=== PATIENT | male | born 1970 | race African-American/Black ===

== ENCOUNTER 2016-07-19 12:19 | Emergency (ER) | payer MEDICAID ==
[~2016-07-19] VITALS: Ht 170.2 cm; Wt 97.5 kg
[~2016-07-19 12:19] MED LIST: AFRIN NASAL SPR30 ML NASAL; AUGMENTIN 875-1 EAC1 ORAL; NKM; PERCOCET 5-3251 EACH ORAL
[2016-07-19] MEDS ORDERED: BENADRYL25 MG ORAL (13:29)
[2016-07-19] MEDS ORDERED: KENALOG 0.5% CR15 GM TP (13:29)
[2016-07-19 13:49] VITALS: BP 143/92
--- NOTE | 2016-07-19 17:32 | Emergency Room Report ---
History of Present Illness General Chief Complaint: Skin Rash/Abscess Source: Patient Present Illness HPI The patient is a 46 yo M presenting for total body rash which began yesterday for an unknown reason. The patient denies any known allergies. Patient denies using any new products or new clothing. Patient denies consuming any different foods. The patient describes this as little red bumps all over but are very itchy. Patient denies any pain. The patient denies of symptoms including nausea, vomiting, fever, chills, headache, dizziness, chest pain, shortness of breath Allergies: Coded Allergies: IBUPROFEN (Unverified Allergy, Unknown, 10/17/13) Patient History Past Medical History: see triage record Pertinent Family History: none Reviewed Nursing Documentation: PMH: Agreed, PSxH: Agreed Nursing Documentation-PMH Past Medical History: No History, Except For Hx Hypertension: Yes Hx Neurological Problems: Yes - Pinched nerve on neck Review of Systems All Other Systems: negative except mentioned in HPI Physical Exam Vital Signs Date Time Temp Pulse Resp B/P Pulse Ox O2 Delivery O2 Flow Rate FiO2 07/19/16 13:00 99.1 74 16 143/92 95 Room Air Sp02 EP Interpretation: reviewed, normal General Appearance: no apparent distress, alert, GCS 15, non-toxic Head: normocephalic, atraumatic Eyes: bilateral eye PERRL, bilateral eye normal inspection ENT: hearing grossly normal, normal pharynx, no angioedema, normal voice Respiratory: chest non-tender, lungs clear, normal breath sounds, speaking full sentences Cardiovascular #1: regular rate, rhythm, no edema Musculoskeletal: back normal, gait/station normal, normal range of motion, non- tender Neurologic: alert, oriented x3, responsive, motor strength/tone normal, sensory intact, speech normal Psychiatric: judgement/insight normal, memory normal, mood/affect normal, no suicidal/homicidal ideation Skin: normal turgor, rash - Many erythematous papules noted over neck, bilateral arms, and bilateral legs Lymphatic: no adenopathy Medical Decision Making PA Attestation Dr. Walter is my supervising physician. Patient management was discussed with my supervising physician Diagnostic Impression: Primary Impression: Dermatitis ER Course The patient is a 46 yo M presenting for total body rash Ddx considered include but not limited to insect bite, contact dermatitis, eczema, cellulitis PE: vitals WNL. NAD Many erythematous papules noted over neck, bilateral arms, and bilateral legs. No scaling. No burrows. No central openings. The patient is discharged home with a prescription for Benadryl and triamcinolone. Patient will follow up with PMD. Patient will thoroughly clean his room. ER precautions are given Last Vital Signs Date Time Temp Pulse Resp B/P Pulse Ox O2 Delivery O2 Flow Rate FiO2 07/19/16 13:49 99.1 74 16 143/92 95 Room Air Status: improved Disposition: HOME, SELF-CARE Condition: Improved Scripts Triamcinolone Acet (Triamcinolone Acetonide) 15 Gm Cream..g. 15 GM TP TID, #15 GM Prov: DONNA BUSCH 07/19/16 Diphenhydramine Hcl* (BENADRYL*) 25 Mg Capsule 25 MG ORAL Q6H Y for Itching, #20 CAP Prov: DONNA BUSCH 07/19/16 Patient Instructions: Rash Additional Instructions: I discussed my findings with the patient. All questions and concerns have been answered. Treatment and medication compliance have been addressed. I advised the patient that they need to follow up with PMD in 3-5 days. Return to ED if symptoms worsen, new symptoms arise, or if needed for any reason. Patient verbalized understanding of discharge instructions. DONNA BUSCH Jul 19, 2016 17:32
== END 2016-07-19 13:49 | disposition home or self-care (01) ==
LOC: EMR 13:15
DX: L30.9 Dermatitis, unspecified (principal); I10 Essential (primary) hypertension; Z88.6 Allergy status to analgesic agent
CPT/HCPCS: 99284

== ENCOUNTER 2016-09-06 14:04 | Emergency (ER) | payer MEDICAID ==
[~2016-09-06] VITALS: Ht 170.2 cm; Wt 103.9 kg
[~2016-09-06 14:04] MED LIST changes: +BENADRYL25 MG ORAL; +KENALOG 0.5% CR15 GM TP
[2016-09-06] MEDS ORDERED: Norco 5mg/325mg tab ORAL ONE ×2 (14:30→15:00)
[2016-09-06] MEDS ORDERED: Enalaprilat 2.5mg/2ml Inj IV ONE (14:30)
--- NOTE | 2016-09-06 15:11 | Emergency Room Report ---
History of Present Illness General Chief Complaint: Chest Pain Source: Patient Present Illness HPI Patient is a 46-year-old male who presented after increased chest pain. Pain is described as a tightness sensation. This began at rest. Patient had recently had a neck surgery for discectomy. Patient denied any fever. He had not been vomiting. He denies any severe pain. Denies weakness to his extremities. Allergies: Coded Allergies: IBUPROFEN (Unverified Allergy, Unknown, 10/17/13) Patient History Past Medical History: see triage record, HTN Reviewed Nursing Documentation: PMH: Agreed, PSxH: Agreed Nursing Documentation-PMH Hx Hypertension: Yes Hx Neurological Problems: Yes - Pinched nerve on, neck neck surgery august 2016 Review of Systems All Other Systems: negative except mentioned in HPI Physical Exam Vital Signs Date Time Temp Pulse Resp B/P Pulse Ox O2 Delivery O2 Flow Rate FiO2 09/06/16 14:15 99.1 93 20 82/39 97 Room Air Sp02 EP Interpretation: reviewed, normal General Appearance: normal inspection, well appearing, no apparent distress, alert, GCS 15 Head: atraumatic ENT: normal ENT inspection, hearing grossly normal, normal voice Neck: normal inspection, supple, no bony tend, other - cervical hard collar in place Respiratory: normal inspection, lungs clear, normal breath sounds, no respiratory distress, no retraction, no wheezing Cardiovascular #1: regular rate, rhythm, no edema Gastrointestinal: normal inspection, normal bowel sounds, non tender, soft, no guarding, no hernia Genitourinary: no CVA tenderness Musculoskeletal: normal inspection, back normal, normal range of motion Neurologic: normal inspection, alert, oriented x3, responsive, assembler lay ups III-XII nml as tested, motor strength/tone normal, normal gait, speech normal Psychiatric: normal inspection, judgement/insight normal, mood/affect normal Skin: normal inspection, normal color, no rash Medical Decision Making Diagnostic Impression: Primary Impression: Hypertension ER Course Patient presented for chest pain.Differential diagnosis included but was not limited to acute coronary syndrome, pulmonary embolism, pneumonia, aortic dissection, shingles, pneumothorax, aortic dissection, esophageal rupture, pericarditis. Because of complexity of patient's case laboratory testing and imaging studies were ordered. EKG interpreted by me showed normal sinus rhythm with a rate of [address] or T wave changes.The patient was noted to have improvement in his chest pain after being given [place] as well as blood pressure medications. Patient was advised to recheck with Dr. Gloria tomorrow. Patient is advised to return if any worsening condition or if any changes in status that are concerning. Labs Test 09/06/16 15:00 09/06/16 15:45 White Blood Count 7.0 K/UL (4.8-10.8) Red Blood Count 6.38 M/UL (4.70-6.10) Hemoglobin 18.0 G/DL (14.2-18.0) Hematocrit 56.8 % (42.0-52.0) Mean Corpuscular Volume 89 FL (80-99) Mean Corpuscular Hemoglobin 28.2 PG (27.0-31.0) Mean Corpuscular Hemoglobin Concent 31.7 G/DL (32.0-36.0) Red Cell Distribution Width 13.3 % (11.6-14.8) Platelet Count 227 K/UL (150-450) Mean Platelet Volume 7.4 FL (6.5-10.1) Neutrophils (%) (Auto) 57.1 % (45.0-75.0) Lymphocytes (%) (Auto) 34.2 % (20.0-45.0) Monocytes (%) (Auto) 7.1 % (1.0-10.0) Eosinophils (%) (Auto) 0.9 % (0.0-3.0) Basophils (%) (Auto) 0.8 % (0.0-2.0) Prothrombin Time 10.2 SEC (9.30-11.50) Prothromb Time International Ratio 1.0 (0.9-1.1) Activated Partial Thromboplast Time 30 SEC (23-33) Sodium Level 138 mEQ/L (135-145) Potassium Level 3.7 mEQ/L (3.4-4.9) Chloride Level 94 mEQ/L (98-107) Carbon Dioxide Level 29 mEQ/L (20-30) Anion Gap 15 (5-15) Blood Urea Nitrogen 14 mg/dL (7-23) Creatinine 1.2 mg/dL (0.7-1.2) Estimat Glomerular Filtration Rate > 60 mL/min (>60) Glucose Level 106 mg/dL (74-106) Calcium Level 10.1 mg/dL (8.6-10.2) Total Bilirubin 0.5 mg/dL (0.0-1.2) Aspartate Amino Transf (AST/SGOT) 20 U/L (5-40) Alanine Aminotransferase (ALT/SGPT) 19 U/L (3-41) Alkaline Phosphatase 76 U/L (40-129) Total Creatine Kinase 232 U/L (38-174) Creatine Kinase MB 1.6 ng/mL (< 6.7) Creatine Kinase MB Relative Index 0.6 Troponin I < 0.30 ng/mL (<=0.30) Total Protein 7.1 g/dL (6.6-8.7) Albumin 4.5 g/dL (3.5-5.2) Globulin 2.6 g/dL Albumin/Globulin Ratio 1.7 (1.0-2.7) Urine Color Pale yellow Urine Appearance Slightly cloudy Urine pH 6 (4.5-8.0) Urine Specific [place] 1.020 (1.005-1.035) Urine Protein Negative (NEGATIVE) Urine Glucose (UA) Negative (NEGATIVE) Urine Ketones Negative (NEGATIVE) Urine Occult Blood 1+ (NEGATIVE) Urine Nitrite Negative (NEGATIVE) Urine Bilirubin Negative (NEGATIVE) Urine Urobilinogen Normal MG/DL (0.0-1.0) Urine Leukocyte Esterase Negative (NEGATIVE) Urine RBC 2-4 /HPF (0 - 0) Urine WBC 0 /HPF (0 - 0) Urine Squamous Epithelial Cells Occasional /LPF Urine Bacteria Few /HPF (NONE) EKG Diagnostic Results Rate: normal Rhythm: NSR ST Segments: no acute changes Rhythm Strip Diag. Results EP Interpretation: yes Rhythm: NSR, no PVC's, no ectopy Last Vital Signs Date Time Temp Pulse Resp B/P Pulse Ox O2 Delivery O2 Flow Rate FiO2 09/06/16 15:09 154/105 09/06/16 14:15 99.1 93 20 97 Room Air Status: improved Disposition: HOME, SELF-CARE Condition: Stable Referrals: TABBY GLORIA (PCP) Bipin Wilkins September 06, 2016 15:11
--- NOTE | 2016-09-06 15:18 | Diagnostic Imaging Report ---
Indication: Chest Pain Comparison: 01/13/16 A single view chest radiograph was obtained. Findings: Cardiomediastinal appearance is within normal limits for age. Aorta is ectatic consistent with atherosclerotic disease. Pulmonary vascularity is appropriate. The diaphragmatic contour is smooth and costophrenic angles are sharp. No pleural effusions are identified. The bones are unremarkable. Impression: No acute findings. Atherosclerotic disease of aorta
[2016-09-06 15:19] VITALS: BP 175/125
[2016-09-06 15:39] LABS: PROTHROMBIN TIME 10.2 SEC (9.30-11.50)
[2016-09-06 15:44] LABS: BASOPHILS % (AUTO) 0.8 % (0.0-2.0); EOSINOPHILS % (AUTO) 0.9 % (0.0-3.0); LYMPHOCYTES % (AUTO) 34.2 % (20.0-45.0); MEAN CORPUSCULAR HEMOGLOBIN 28.2 PG (27.0-31.0); MEAN CORPUSCULAR HGB CONC 31.7 G/DL (32.0-36.0); MEAN CORPUSCULAR VOLUME 89 FL (80-99); MEAN PLATELET VOLUME 7.4 FL (6.5-10.1); MONOCYTES % (AUTO) 7.1 % (1.0-10.0); NEUTROPHILS % (AUTO) 57.1 % (45.0-75.0); PLATELET COUNT 227 K/UL (150-450); RED BLOOD COUNT 6.38 M/UL (4.70-6.10); RED CELL DISTRIBUTION WIDTH 13.3 % (11.6-14.8)
[2016-09-06 15:46] LABS: TROPONIN I < 0.30 ng/mL (<=0.30)
[2016-09-06 15:47] LABS: ALANINE AMINOTRANSFERASE 19 U/L (3-41); ALBUMIN/GLOBULIN RATIO 1.7 (1.0-2.7); ANION GAP 15 (5-15); ASPARTATE AMINO TRANSFERASE 20 U/L (5-40); CALCIUM 10.1 mg/dL (8.6-10.2); CARBON DIOXIDE 29 mEQ/L (20-30); CHLORIDE 94 mEQ/L (98-107); CREATININE 1.2 mg/dL (0.7-1.2); GLOMERULAR FILTRATION RATE > 60 mL/min (>60); HEMOLYSIS 5; POTASSIUM 3.7 mEQ/L (3.4-4.9); SODIUM 138 mEQ/L (135-145); TOTAL PROTEIN 7.1 g/dL (6.6-8.7)
[2016-09-06 15:58] LABS: CKMB 1.6 ng/mL (< 6.7)
[2016-09-06 16:39] LABS: KETONES,URINE NEGATIVE (NEGATIVE); LEUKOCYTE ESTERASE ,URINE NEGATIVE (NEGATIVE); NITRITE,URINE NEGATIVE (NEGATIVE); PH,URINE 6 (4.5-8.0); PROTEIN,URINE NEGATIVE (NEGATIVE); UROBILINOGEN,URINE NORMAL MG/DL (0.0-1.0)
[2016-09-06 16:59] LABS: APPEARANCE,URINE SLIGHTLY CLOUDY
[2016-09-06 17:02] LABS: BACTERIA,URINE FEW /HPF; SQUAMOUS EPITHELIAL CELL,UR OCCASIONAL /LPF (NONE/OCC); WBC,URINE 0 /HPF (0 - 0)
[2016-09-06 17:20] VITALS: BP 165/111
--- NOTE | 2016-09-07 12:46 | Cardiology Report ---
APPROVED REPORT EKG Measurement Heart [id number] Normal sinus rhythm Possible Left atrial enlargement Cannot rule out Anterior infarct, age undetermined Abnormal ECG
== END 2016-09-06 17:25 | disposition home or self-care (01) ==
LOC: EMR 14:37
DX: I10 Essential (primary) hypertension (principal); R07.89 Other chest pain; Z98.890 Other specified postprocedural states
CPT/HCPCS: 71010; 80053; 81003; 82550; 82553; 84484; 85025; 85610; 85730; 93005; 96374

== ENCOUNTER 2017-06-17 13:24 | Emergency (ER) | payer MEDICAID ==
[~2017-06-17] VITALS: Ht 170.2 cm; Wt 102.1 kg
[2017-06-17] MEDS ORDERED: AMLODIPINE BES2.5 MG ORAL (13:55)
[2017-06-17] MEDS ORDERED: HYDROCHLOROTH12.5 M2 ORAL (13:55)
[2017-06-17] MEDS ORDERED: LISINOPRIL20 MG ORAL (13:55)
[2017-06-17] MEDS ORDERED: IBUPROFEN600 MG ORAL (13:55)
[2017-06-17] MEDS ORDERED: HYDROCODON-ACE1 EA15 ORAL (13:55)
[2017-06-17] MEDS ORDERED: PANTOPRAZOLE SO40 MG ORAL (13:55)
[2017-06-17] MEDS ORDERED: GABAPENTIN800 MG ORAL (13:55)
[2017-06-17] MEDS ORDERED: AMOXICILLIN500 MG ORAL (13:55)
[2017-06-17] MEDS ORDERED: Morphine Sulfate 4mg/ml Inj IM ONE (14:15)
[2017-06-17] MEDS ORDERED: Augmentin 875mg Tab ORAL ONE (14:15)
[2017-06-17] MEDS ORDERED: PREDNISONE20 MG ORAL (14:19)
[2017-06-17] MEDS ORDERED: AUGMENTIN 875-1 EAC1 ORAL (14:19)
[2017-06-17 14:40] VITALS: BP 152/96
[2017-06-17 14:41] VITALS: BP 152/96
--- NOTE | 2017-06-17 16:17 | Emergency Room Report ---
History of Present Illness General Chief Complaint: Toothache Source: Patient Present Illness HPI 47-year-old male presents ED for evaluation. Patient presenting with left sided cheek pain. Seen by dentist a few days ago and was prescribed antibiotics. Patient states pain is persisting. Throbbing, 10 out of 10, nonradiating. Denies fevers or chills. Patient also states he has a sinus infection. States he feels very congested and has great deal of pressure around the nose. Has been told he has sinus infection in the past. No other aggravating or relieving factors. Denies any other associated symptoms Allergies: Coded Allergies: IBUPROFEN (Unverified Allergy, Unknown, 10/17/13) Patient History Past Medical History: HTN, other Past Surgical History: other - neck, back surgery Pertinent Family History: none Social History: Denies: smoking, alcohol use, drug use Immunizations: UTD Reviewed Nursing Documentation: PMH: Agreed, PSxH: Agreed Nursing Documentation-PMH Hx Hypertension: Yes Hx Neurological Problems: Yes - Pinched nerve on, neck neck surgery august 2016 Review of Systems All Other Systems: negative except mentioned in HPI Physical Exam Vital Signs Date Time Temp Pulse Resp B/P (MAP) Pulse Ox O2 Delivery O2 Flow Rate FiO2 06/17/17 13:42 98.3 101 20 172/92 95 Room Air 98.2 Sp02 EP Interpretation: reviewed, normal General Appearance: no apparent distress, alert, GCS 15, non-toxic Head: normocephalic Eyes: bilateral eye normal inspection, bilateral eye PERRL ENT: hearing grossly normal, normal pharynx, no angioedema, normal voice, TMs + canals normal, other - swelling L lower jaw. no fluctuance Neck: normal inspection Respiratory: normal inspection Cardiovascular #1: normal inspection Gastrointestinal: normal inspection Rectal: deferred Genitourinary: no CVA tenderness Musculoskeletal: normal inspection Neurologic: alert, oriented x3, responsive, motor strength/tone normal, sensory intact, speech normal Psychiatric: judgement/insight normal, memory normal, mood/affect normal, no suicidal/homicidal ideation Skin: normal inspection Lymphatic: normal inspection Medical Decision Making Diagnostic Impression: Primary Impression: Sinus infection Qualified Codes: J01.01 - Acute recurrent maxillary sinusitis Additional Impression: Tooth infection ER Course 47-year-old male presents ED complaining of tooth pain. sinus pressure Cracked tooth, dental abscess, cavity Patient placed on stretcher. After initial history, physical exam reveals a male in mild distress. There is swelling to the left lower jaw close to the site of the tooth infection. No fluctuance. No discharge. No neck stiffness. Patient does have narrow nasal turbinates consistent with a sinus infection Discussed findings with patient. We will change prescription from amoxicillin to Augmentin. Given prednisone and morphine IM here Diagnosis- tooth infection, sinus infection Stable and discharged to home prescription for Augmentin, prednisone. Instructed to see dentist as a walk-in this week. Return to ED if symptoms recur or worse Last Vital Signs Date Time Temp Pulse Resp B/P (MAP) Pulse Ox O2 Delivery O2 Flow Rate FiO2 06/17/17 14:41 98.5 99 19 152/96 96 Room Air Status: improved Disposition: HOME, SELF-CARE Condition: Stable Scripts Prednisone* (PREDNISONE*) 20 Mg Tablet 40 MG ORAL DAILY, #10 TAB Prov: EMILY POTTS M.D. 06/17/17 Amoxicillin/Potassium Clav 875-125* (AUGMENTIN 875-125 TABLET*) 1 Each Tablet 1 TAB ORAL TWICE A DAY, #14 TAB Prov: EMILY POTTS M.D. 06/17/17 Referrals: TABBY GLORIA (PCP) Patient Instructions: Dental Pain, Sinusitis, Adult, [id number] EMILY POTTS M.D. Jun 17, 2017 16:17
== END 2017-06-17 14:41 | disposition home or self-care (01) ==
LOC: EMR 14:00
DX: J32.9 Chronic sinusitis, unspecified (principal); K04.7 Periapical abscess without sinus; I10 Essential (primary) hypertension; Z88.6 Allergy status to analgesic agent
CPT/HCPCS: 96372; 99284; J2270; J7512

== ENCOUNTER 2019-02-19 18:22 | Emergency (ER) | payer MEDICAID, MEDICARE ==
[~2019-02-19] VITALS: Ht 170.2 cm; Wt 111.1 kg
[~2019-02-19 18:22] MED LIST changes: +AMLODIPINE BES2.5 MG ORAL; +AMOXICILLIN500 MG ORAL; +GABAPENTIN800 MG ORAL; +HYDROCHLOROTH12.5 M2 ORAL; +HYDROCODON-ACE1 EA15 ORAL; +IBUPROFEN600 MG ORAL; +LISINOPRIL20 MG ORAL; +PANTOPRAZOLE SO40 MG ORAL; +PREDNISONE20 MG ORAL
[2019-02-19 18:26] VITALS: BP 148/103
--- NOTE | 2019-02-19 18:40 | NUR ---
ED Nurse Note: PT. AAOX4. AMBULATORY. WALKED IN TO ER. PT STATED HE HAS LEFT SHOULDER PAIN X LAST NIGHT. DENIES INJURY OR TRAUMA. SKIN IS INTACT. NO REDNESS OR SWELLING ON THE AFFECTED SITE. NO ACUTE S/S OF ANY DISTRESS NOTED AT THIS TIME.
--- NOTE | 2019-02-19 19:00 | NUR ---
ED Nurse Note: ERMD at bedside.
--- NOTE | 2019-02-19 19:10 | NUR ---
HAND-OFF: Report given to CRISTIANA Benjamin.
[2019-02-19] MEDS ORDERED: Acetaminophen 500mg (ES) tab ORAL ONE (19:15)
[2019-02-19] MEDS ORDERED: Methocarbamol 750mg tab ORAL ONE (19:15)
[2019-02-19] MEDS ORDERED: ROBAXIN-750750 MG PO (19:46)
[2019-02-19] MEDS ORDERED: ACETAMINOPHEN-1 EAC1 ORAL (19:46)
[2019-02-19] MEDS ORDERED: LIDODERM700 M1 TOPIC (19:46)
[2019-02-19 19:55] VITALS: BP 148/103
--- NOTE | 2019-02-19 19:55 | NUR ---
ER DISCHARGE NOTE: Patient is cleared to be discharged per ERMD, pt is aox4, on room air, with stable vital signs. pt was given dc and prescription instructions, pt was able to verbalize understanding, pt id band removed. pt is able to ambulate with steady gait. pt took all belongings.
--- NOTE | 2019-02-24 11:22 | Emergency Room Report ---
History of Present Illness General Chief Complaint: Pain Source: Patient Present Illness HPI 49 yo M presents to ED c/o neck pain. started 3 days ago. notes pain to neck/ upper back. denies any recent fall or injury. pain is throbbing 7/10 nonradiating. history of prior neck surgery due to pinched nerve. no other aggravating or relieving factors. denies any other associated symptoms. Allergies: Coded Allergies: IBUPROFEN (Unverified Allergy, Unknown, 10/17/13) Patient History Past Medical History: HTN, other - pinched nerve in neck Past Surgical History: none Pertinent Family History: none Social History: Denies: smoking, alcohol use, drug use Immunizations: UTD Reviewed Nursing Documentation: PMH: Agreed; PSxH: Agreed Nursing Documentation-PMH Past Medical History: No History, Except For Hx Hypertension: Yes Hx Neurological Problems: Yes - Pinched nerve on, neck neck surgery august 2016 Review of Systems All Other Systems: negative except mentioned in HPI Physical Exam Sp02 EP Interpretation: reviewed, normal General Appearance: no apparent distress, alert, GCS 15, non-toxic Head: normocephalic Eyes: bilateral eye normal inspection, bilateral eye PERRL ENT: hearing grossly normal, normal pharynx, no angioedema, normal voice Neck: full range of motion, supple, no meningismus, no bony tend, tender lateral Respiratory: normal inspection Cardiovascular #1: normal inspection Gastrointestinal: normal inspection Rectal: deferred Genitourinary: no CVA tenderness Musculoskeletal: tender - L trapezius Neurologic: alert, oriented x3, responsive, motor strength/tone normal, sensory intact, speech normal Psychiatric: normal inspection Skin: no rash Lymphatic: normal inspection Medical Decision Making Diagnostic Impression: Primary Impression: Neck strain Qualified Codes: S16.1XXA - Strain of muscle, fascia and tendon at neck level , initial encounter ER Course Hospital Course 49-year-old M presents to ED complaining of neck pain and upper back pain. Differential diagnoses include: chronic pain, muscle strain, Lspine injury, sciatica Clinical course Patient placed on stretcher in ED. After initial history, physical exam reveals middle aged male in no acute distress. on exam there is no midline cervical tenderness. paraspinal tenderness noted, with TTP over L trapezius. no nuchal rigidity. pain is muscular. no indication for imaging at this time, patient given tylenol, robaxin, lidoderm. Upon reassessment patient states pain has improved. safe for discharge with close outpatient followup. states he has a PMD Diagnosis - neck pain Stable and discharged to home with Rx tylenol, robaxin, lidoderm. instructed to f/up with PMD. return to ED if symptoms recur/worsen Status: improved Disposition: HOME, SELF-CARE Condition: Stable Scripts Lidocaine Patch* (Lidoderm Patch*) 1 Each Adh..patch 1 PATCH TOPIC DAILY, #7 PATCH 0 Refills Patch(es) may remain in place for up to 12 hours in any 24-hour period. Prov: Shayan Ricci MD 02/19/19 Methocarbamol* (ROBAXIN-750*) 750 Mg Tablet 750 MG PO TID, #21 TAB 0 Refills Prov: Shayan Ricci MD 02/19/19 Acetaminophen With Codeine (T#3) (TYLENOL #3 TAB*) Y Tab 1 TAB ORAL Q8H PRN for For Pain for 3 Days, #12 TAB Prov: Shayan Ricci MD 02/19/19 Referrals: NOT CHOSEN IPA/,REFERRING (PCP) Patient Instructions: Cervical Sprain, [id number] Shayan Ricci MD Feb 24, 2019 11:22
== END 2019-02-19 19:55 | disposition home or self-care (01) ==
LOC: EMR 18:44
DX: M25.512 Pain in left shoulder (principal)
CPT/HCPCS: 99282